=== PATIENT | male | born 1955 | race Caucasian/White ===

== ENCOUNTER 2020-09-01 14:02 | Emergency (ER) | payer OTHER, MEDICARE ==
[~2020-09-01] VITALS: Ht 175.3 cm; Wt 87.1 kg
[~2020-09-01 14:02] MED LIST: CETI10CA PO; DEXA0.5E2 PO; ROSU20TA2 PO
--- NOTE | 2020-09-01 15:14 | NUR ---
pt presents to ED this afternoon after not being able to void since 0900. pt had a hemorrhoidectomy this am, with no post op complaints other than urinary retention. pt had urinary retention post op for last surgery 8 yrs ago. pt is a&o, resps even and unlabored. bp and spo2 monitors in place. pt declines galaviz stating only straight cath was necessary in past, MD Lofton instructed RN to perform straight cath then PO challenge and await void prior to dc. pt straight cath'd, urine sample sent to lab. pt tolerated well. water provided.
[2020-09-01 15:31] LABS: MICROSCOPIC NOT IND
--- NOTE | 2020-09-01 15:56 | NUR ---
approx 250 mL urine drained via straight cath. bladder scan post void shows 20mL , notified. MD instructed RN to provide PO fluids and await spontaneous void. pt given water and blankets, informed of POC. pt aggreable, nadn at this time. report given to eugenio Willis.
--- NOTE | 2020-09-01 16:07 | NUR ---
BREAK RN: PT GIVEN WATER. FAMILY AT BEDSIDE. CALL LIGHT IN PLACE. WILL CONTINUE TO MONITOR.
--- NOTE | 2020-09-01 16:41 | NUR ---
REPORT GIVEN TO TOMMY SEXTON
--- NOTE | 2020-09-01 16:45 | NUR ---
THIS RN BACK FROM BREAK, REPORT TAKEN BACK FROM ANNY. FAREED PRINCE AT BEDSIDE, PT HAS NOT VOIDED BUT REQUESTS DISCHARGE, VERBALIZES UNDERSTANDING OF NEED TO RETURN IF UNABLE TO VOID. AGREEABLE TO PT DC BEFORE VOID. AWAITING DC PAPERWORK FROM .
[2020-09-01 17:04] VITALS: BP 135/78
== END 2020-09-01 17:19 | disposition home or self-care (01) ==
LOC: ED 16:50
DX: R33.0 Drug induced retention of urine (principal); I10 Essential (primary) hypertension
CPT/HCPCS: 51701; 81003; 99284; P9612